=== PATIENT | female | born 1980 | race Caucasian/White ===

== ENCOUNTER 2016-05-25 05:38 | Day surgery (SDC) | payer OTHER ==
[2016-05-24 10:30] VITALS: Ht 157.5 cm; Wt 63.0 kg
[2016-05-25] VITALS (9 sets, daily range): BP systolic 111–121; BP diastolic 63–70; PULSE 58–84; RESP 13–18
[~2016-05-25] VITALS: Ht 157.5 cm; Wt 63.0 kg
[~2016-05-25 05:38] MED LIST: FERR134T PO; PRENAT PO
[2016-05-25] MEDS ORDERED: GLYCOPYRROLATE 1 MG INJ ONE (07:00)
[2016-05-25] MEDS ORDERED: LIDOCAINE 2% (SDV) 5 ML INJ ONE (07:00)
[2016-05-25] MEDS ORDERED: BUPIVACAINE 0.25%/EPI (SDV) 30 ML INJ ONE (07:46)
[2016-05-25] MEDS ORDERED: NEOSTIGMINE 3 MG/3 ML SYRINGE ONE (07:53)
[2016-05-25] MEDS ORDERED: ROCURONIUM 50 MG INJ ONE (07:53)
[2016-05-25] MEDS ORDERED: CEFAZOLIN 1 GM INJ ONE ×2 (07:53→08:32)
[2016-05-25] MEDS ORDERED: PROPOFOL 20 ML ONE (07:53)
[2016-05-25] MEDS ORDERED: FENTAnyl 50 MCG/ML VIAL ONE ×2 (07:54→08:38)
[2016-05-25] MEDS ORDERED: MIDAZOLAM 1 MG/ML 2 ML INJ ONE (07:54)
[2016-05-25] MEDS ORDERED: ONDANSETRON 4 MG INJ ONE (07:54)
[2016-05-25] MEDS ORDERED: DEXAMETHASONE 4 MG/ML 1 ML INJ ONE (07:54)
--- NOTE | 2016-05-25 08:31 | QN ---
Documentation Comment marilin Cisse in same day surgery at 1100 XAVIER MANDEL MD May 25, 2016 08:31
--- NOTE | 2016-05-25 08:53 | OPPN ---
Date/Time of Note Date/Time of Note DATE: 05/25/16 TIME: 08:51 Anesthesia Eval and Record Evaluation Age 36 Sex female NPO: 8 hrs Preoperative diagnosis Pt request for sterilization Planned procedure Mini Lap, BTL Surgery & Anesthesia Issues No known issue Meds Anticoagulation: No Beta Vasile within 24 hr: No Reason Beta Vasile not given: Pt. not on B-Vasile Reported Medications Ferrous Sulfate (Iron) 134 Mg Tablet, 134 MG PO DAILY, TAB 02/09/16 Multivit/Min/Fol Ac/Iron/Pren* ( S*) 1 Tab Tab, 1 TAB PO DAILY, TAB 02/09/16 Allergies Coded Allergies: No Known Allergy (Unverified , 02/09/16) Labs/Studies Reviewed by anesthesiologist Test: Negative Pre-procedure Exam Last vitals Vital Signs Date Time Temp Pulse Resp B/P Pulse Ox O2 Delivery O2 Flow Rate FiO2 05/25/16 06:36 98.2 79 18 118/70 100 Room Air Airway: Adequate mouth opening, Adequate thyromental dist Mallampati Score: Mallampati I Teeth: Normal Lung: Normal Heart: Normal ASA Physical Status ASA physical status: 1 Planned Anesthetic General/MAC: ETT Pre-operative Attestations Prior to commencing anesthesia and surgery, the patient was re-evaluated, there was verification of: *The patient's identity *The results of appropriate recent lab work and preoperative vital signs *The above evaluation not changing prior to induction *Anesthetic plan, risk benefits, alternative and complications discussed with patient/family; questions answered; patient/family understands, accepts and wishes to proceed. Jack Coats M.D. May 25, 2016 08:52
[2016-05-25] MEDS ORDERED: EPHEDrine SULFATE 50 MG/5 ML SYG IV PRN (09:00)
[2016-05-25] MEDS ORDERED: HYDROmorphONE (0.2 MG/ML) 10ML SYG IV PRN ×2 (09:00)
[2016-05-25] MEDS ORDERED: ONDANSETRON 4 MG INJ IV PRN (09:00)
[2016-05-25] MEDS ORDERED: MEPERIDINE 25 MG INJ IV PRN (09:00)
[2016-05-25] MEDS ORDERED: LABETALOL HCL 20MG INJ IV PRN (09:00)
[2016-05-25] MEDS ORDERED: MIDAZOLAM 1 MG/ML 2 ML INJ IV PRN (09:00)
[2016-05-25] MEDS ORDERED: FENTAnyl 50 MCG/ML VIAL IV PRN ×3 (09:00)
[2016-05-25] MEDS ORDERED: hydrALAzine 20 MG INJ IV PRN (09:00)
[2016-05-25] MEDS ORDERED: TRIMETHOBENZAMIDE 100 MG/ML VIAL IM PRN (09:00)
[2016-05-25] MEDS ORDERED: DIPHENHYDRAMINE 50 MG INJ IV PRN (09:00)
[2016-05-25] MEDS: HYDROmorphONE (0.2 MG/ML) 10ML SYG IV PRN ×2 (09:40→09:43)
--- NOTE | 2016-05-25 10:57 | OPR ---
DATE OF OPERATION: 05/25/2016 PREOPERATIVE DIAGNOSES: Request for voluntary sterilization, bilateral tubal ligation. POSTOPERATIVE DIAGNOSES: Request for voluntary sterilization, bilateral tubal ligation. OPERATION PERFORMED: Minilaparotomy with bilateral tubal ligation. SURGEON: Xavier Starr MD ANESTHESIA: General. ANESTHESIOLOGIST: Dr. Coats DETAILS OF THE PROCEDURE: Under satisfactory general anesthesia the patient was prepped and draped and placed in the supine position. A 1.5-inch Pfannenstiel incision was made, the incision carried through the subcutaneous tissue. Bleeders were brought under control with electrocautery. Fascia was incised to the length of the incision. Rectus muscle was divided in the midline. Peritoneum was exposed, entered through a transverse incision. Exploration of the abdomen revealed a normal size uterus, normal-appearing tubes and ovaries. The right fallopian tube was retrieved and grasped by a Umm. The ampullary section and the fimbria were clamped together excised. Suture material used was #0 plain catgut which was reinforced with the same suture material. The cut end of the tube was cauterized and the specimen was submitted for pathology. The same procedure was performed for the opposite side. Sponge, needle and instruments were reported to be correct. Abdominal peritoneum was closed with 2-0 chromic catgut continuously. Rectus muscle was approximated with 2 interrupted 2-0 chromic catgut. Fascia was closed with #0 PDS in a continuous fashion. Subcutaneous tissue was approximated with 3 interrupted 2-0 chromic catgut. Skin was closed subcuticular with 3-0 suture. Estimated blood was loss less than 50 mL. Urine bag contained 200 mL of clear urine. Patient tolerated the procedure well, transferred to the recovery room in good condition. Dictated By: XAVIER TILLEY/WANDA Conf#: [id number] DID#: [id number]
== END 2016-05-25 11:20 | disposition home or self-care (01) ==
LOC: SDS 05:38
PROVIDERS: ATTEND Obstetrics & Gynecology
DX: Z30.2 Encounter for sterilization (principal)
CPT/HCPCS: 58600; 88302; J0690; J1100; J1170; J2250; J2405; J2710; J3010; Z7512; Z7610